=== PATIENT | male | born 1990 | race Two or more races ===

== ENCOUNTER 2017-05-09 20:11 | Emergency (ER) | payer MEDICAID ==
[~2017-05-09] VITALS: Ht 177.8 cm; Wt 77.1 kg
[2017-05-09 20:13] VITALS: BP 154/92
== END 2017-05-09 22:22 ==
LOC: EDBD 20:11 → EDUNIT# 20:11 → ER 20:16
DX: R36.9 Urethral discharge, unspecified (principal); F17.210 Nicotine dependence, cigarettes, uncomplicated

== ENCOUNTER 2018-01-17 12:15 | Emergency (ER) | payer MEDICAID ==
[~2018-01-17] VITALS: Ht 180.3 cm; Wt 81.6 kg
[2018-01-17 12:35] VITALS: BP 131/77
== END 2018-01-17 16:00 | disposition left against medical advice (07) ==
LOC: ER 12:16
DX: M54.9 Dorsalgia, unspecified (principal); G89.29 Other chronic pain; Z53.21 Procedure and treatment not carried out due to patient leaving prior to being seen by health care provider